=== PATIENT | male | born 1950 | race Caucasian/White ===

== ENCOUNTER 2017-02-16 06:11 | Inpatient (IN) | payer OTHER, MEDICARE ==
[2017-01-24 09:30] VITALS: BMI 32.0
--- NOTE | 2017-01-24 10:09 | PAT Medication Instructions ---
Service Date Jan 24, 2017. Current Home Medication List Ascorbic Acid (Vitamin C), 1,000 MG PO QAM Aspirin (Aspirin Ec), 81 MG PO QAM Atorvastatin (Lipitor), 40 MG PO QAM Coenzyme Q10 (Ubidecarenone) (Co Q10), 200 MG PO QAM Losartan Potassium (Cozaar), 50 MG PO QAM Metoprolol Succinate (Toprol Xl), 25 MG PO QAM Multivitamin (Multivitamin), 1 TAB PO QAM Omeprazole (Prilosec), 20 MG PO QAM Saw [place] (Serenoa Repens) (Saw [place]), 450 MG PO QAM Turmeric (Curcuma Longa) (Turmeric), 1,000 MG PO QAM Medication Instructions For Your Scheduled Surgery - Hold the following medications 2 weeks prior to surgery: Saw [place] ([place]ren[place]) (Saw [place]), 450 MG PO QAM Turmeric (Curcuma Longa) (Turmeric), 1,000 MG PO QAM Coenzyme Q10 (Ubidecarenone) (Co Q10), 200 MG PO QAM - Hold the following medications the morning of surgery: Ascorbic Acid (Vitamin C), 1,000 MG PO QAM Losartan Potassium (Cozaar), 50 MG PO QAM Multivitamin (Multivitamin), 1 TAB PO QAM - Take the following medications the morning of surgery with a sip of water OTHERWISE NOTHING TO EAT OR DRINK AFTER MIDNIGHT: Aspirin (Aspirin Ec), 81 MG PO QAM Atorvastatin (Lipitor), 40 MG PO QAM Metoprolol Succinate (Toprol Xl), 25 MG PO QAM Omeprazole (Prilosec), 20 MG PO QAM If you have any questions please call us at [phone] or [phone] or [phone]
[2017-01-24 10:35] LABS: BASO % 1.6 %; BASO ABS # 0.08 K/uL (0-0.2); COMPLETE YES; IG% 0.2 %; LYMPH % 33.9 %; LYMPH ABS # 1.71 K/uL (1.2-3.4); MEAN CELL VOLUME 98.2 fL (80-100); MEAN CORPUSCULAR HEMOGLOBIN 32.4 pg (25-34); MEAN PLATELET VOLUME 11.2 fL (7.4-10.4); MONO % 11.7 %; NEUT % 49.6 %; PLATELET COUNT 165 K/uL (130-400); RED BLOOD COUNT 4.48 M/uL (4.7-6.1); WHITE BLOOD COUNT 5.05 K/uL (4.8-10.8)
--- NOTE | 2017-01-24 10:46 | DIAGNOSTIC IMAGING REPORT ---
CHEST PREADMISSION(PA/LAT) CLINICAL HISTORY: PAT preoperative evaluation COMPARISON STUDY: 12/22/2015 FINDINGS: Prior median sternotomy. Lungs are clear. Diaphragms are smooth. IMPRESSION: No acute process. Electronically signed by: Ruy Garcia M.D. 01/24/2017 10:45 AM Dictated Date/Time: 01/24/2017 10:44 AM
[2017-01-24 10:53] LABS: URINE APPEARANCE CLEAR (CLEAR); URINE BILIRUBIN NEG (NEG); URINE COLOR YELLOW; URINE NITRITE NEG (NEG); URINE PH 5.5 (4.5-7.5); URINE SPECIFIC GRAVITY 1.026 (1.000-1.030); UROBILINOGEN NEG (NEG); ZZUR CULT IF INDIC CLEAN CATCH NO
[2017-01-24 10:53] LABS: PARTIAL THROMBOPLASTIN RATIO 1.1; PROTHROMBIN TIME (PATIENT) 10.2 SECONDS (9.0-12.0)
[2017-01-24 11:03] LABS: ESTIMATED AVERAGE GLUCOSE 126 mg/dl; HA1C FLAG Normal (Normal)
[2017-01-24 11:10] LABS: MANUAL MICROSCOPIC REQUIRED? NO; REVIEW REQ? NO
[2017-01-24 11:50] LABS: BUN/CREATININE RATIO 16.5 (10-20); CREATININE 1.3 mg/dl (0.60-1.40)
[2017-01-24 11:56] LABS: CALCIUM 9.2 mg/dl (8.5-10.1)
--- NOTE | 2017-02-15 09:28 | History and Physical ---
History & Physical Date Feb 15, 2017. Chief Complaint Left knee pain History of Present Illness The patient is a 66 year old male with complaints of left knee pain. He has known DJD and has failed corticosteroid and viscosupplementation injection. He has pain with ADLs including prolonged weightbearing and standing activities and has difficulty with any kneeling, bending, or squatting activities. Past Medical/Surgical History Medical Problems: (1) Hypercholesteremia (2) Hypertension Surgical Problems: (1) Hx of CABG Additional History Hepatic Disease: No Endocrine Disorder: No Kidney Disease: Yes ( kidney stones) Hypertension: Yes Heart Disease: Yes (CAD x previous CABG, chronic left bundle branch block, ) Bleeding Tendencies: No Infectious Diseases: No Other: Hyperlipidemia, Basal Cell Carcinoma Allergies Coded Allergies: No Known Allergies (Unverified , 01/24/17) Home Medications Scheduled Ascorbic Acid (Vitamin C), 1,000 MG PO QAM Aspirin (Aspirin Ec), 81 MG PO QAM Atorvastatin (Lipitor), 40 MG PO QAM Coenzyme Q10 (Ubidecarenone) (Co Q10), 200 MG PO QAM Losartan Potassium (Cozaar), 50 MG PO QAM Metoprolol Succinate (Toprol Xl), 25 MG PO QAM Multivitamin (Multivitamin), 1 TAB PO QAM Omeprazole (Prilosec), 20 MG PO QAM Saw [place] (Serenoa Repens) (Saw [place]), 450 MG PO QAM Turmeric (Curcuma Longa) (Turmeric), 1,000 MG PO QAM Physical Examination Skin: warm/dry Eyes: normal inspection, EOMI ENT: normal ENT inspection Head: normocephalic Neck: supple, no adenopathy Respiratory/Chest: lungs clear Cardiovascular: regular rate, rhythm Abdomen / GI: normal bowel sounds, non tender Extremities: + pertinent finding (Left knee varus alignment, ROM ~ 0-120 degrees, mild crepitus with ROM) Addiitonal Comments: Xrays: varus aligned knee with bone on bone arthritis medial compartment with medial joint line osteophytes, osteophytes PF joint Diagnosis Left knee DJD Plan of Treatment Left total knee arthroplasty
[2017-02-16] VITALS (9 sets, daily range): BP systolic 103–149; BP diastolic 64–99; PULSE 64–76; TEMP 35.9–36.8; O2SAT 94–96; Ht 182.9 cm; Wt 107.7 kg
[~2017-02-16] VITALS: Ht 182.9 cm; Wt 107.7 kg
[~2017-02-16 06:11] MED LIST: ACETAMINOPHEN 500 MG TAB PO SCH; ASCO10003 PO; ASPI81TA28 PO; ATOR-24 PO; CEFAZOLIN 2000 MG/60 ML D5W 60 ML IV SCH; COEN1CAP28 PO; CeleBREX 200 MG CAP PO SCH; DEXAMETHASONE 4 MG TAB PO SCH; FAMOTIDINE 20 MG TAB PO SCH; GABAPENTIN 300 MG CAP PO SCH; LACTATED RINGER'S 1000ML 1,000 ML IV SCH; LACTATED RINGER'S 1000ML 500 ML IV ONE; LACTATED RINGER'S 1000ML IV SCH; LOSA50TA6 PO; METO25TA3 PO; METOCLOPRAMIDE HCL 10 MG TAB PO SCH; MULT-506 PO; OXYCODONE HCL 10 MG TABCR (OXYCONTIN) PO SCH; PRLSR20 PO; ROPIVACAINE 5MG/ML 30 ML 150 MG, BUPIVACAINE/EPINEPHR 0.5% MPF 30 ML, KETOROLAC TROMETH... INFIL SCH; SAW450CA5 PO; TURM500T PO
[2017-02-16] MEDS ORDERED: LIDOCAINE HCL 2% 2 ML VIAL (20MG/ML) ONE (06:43)
[2017-02-16] MEDS ORDERED: PROPOFOL IV EMULSION 10 MG/ML 20 ML VIAL IV ONE (06:43)
[2017-02-16] MEDS ORDERED: NURSING VERBAL MED ORDER STA (06:43)
[2017-02-16] MEDS ORDERED: MIDAZOLAM HCL 1 MG/ML 2ML VIAL ONE (06:44)
[2017-02-16] MEDS ORDERED: FENTANYL CITRATE INJ 50 MCG/1 ML 2 ML VIAL ONE (06:44)
--- NOTE | 2017-02-16 06:45 | History & Physical Bridge Note ---
H&P Re-Evaluation Bridge Note: I have examined the patient, reviewed the History & Physical and in the interval since the performance of the History & Physical I have noted the following changes of clinical significance: No changes noted
[2017-02-16] MEDS ORDERED: ORTHO JOINT ANESTHETIC ONE (06:54)
[2017-02-16] MEDS ORDERED: BACITRACIN 50000 UNIT VIAL ONE (06:54)
[2017-02-16] MEDS ORDERED: POVIDONE-IODINE OP SOLN 30 ML BTL ONE (06:54)
[2017-02-16] MEDS ORDERED: ONDANSETRON INJ 2 MG/ML 2 ML VIAL IV PRN ×2 (07:00→09:15)
[2017-02-16] MEDS ORDERED: ATROPINE SULFATE 0.1 MG/ML 5ML SYR IV PRN (07:00)
[2017-02-16] MEDS ORDERED: EpHEDrine SULFATE INJ 50 MG/ML AMP IV PRN (07:00)
[2017-02-16] MEDS ORDERED: FENTANYL CITRATE INJ 50 MCG/1 ML 2 ML VIAL IV PRN (07:00)
[2017-02-16] MEDS ORDERED: BUPIVACAINE 0.5 % 5 MG/1 ML PF 10ML VIAL ONE (07:00)
[2017-02-16] MEDS: TRANEXAMIC ACID INJ 1,000 MG in SODIUM CHLORIDE 0.9% 100ML 100 ML IV SCH ×2 (07:22→11:11)
[2017-02-16] MEDS ORDERED: EpHEDrine SULFATE INJ 50 MG/ML AMP ONE (08:35)
--- NOTE | 2017-02-16 09:05 | [facility] Operative Report ---
Operative Report Operative Date Feb 16, 2017. Pre-Operative Diagnosis Left knee degenerative joint disease Post-Operative Diagnosis Left knee degenerative joint disease Procedure(s) Performed Left Total Knee Arthroplasty patient's left knee was prepped and draped in usual sterile manner the limb was exsanguinated with an Esmarch bandage and the tourniquet was inflated to 3 and 50 mmHg. Longitudinal incision made subcutaneous tissues reminiscent of that cardio and aqua mantis was used for hemostasis. Medium parapatellar incision made. Patella was everted and the was flexed. Or effusions noted. Severe estrus wrist. Fat pads removed and anteromedial face of the tibia was cleared of soft tissue and retracted. Next medullary guide was used to produce the proximal cut and this bone fragment was removed. Ninoska is used to enter the femoral canal and the possible alignment guide was placed. Distal femoral cut was made size 6 femoral component shows incised using this chamfers were cut. The notch was cut and split fragment was preserved and menisci removed using meniscal clamp and knife. The distal femoral component was impacted in position and it fit perfectly and the tibia was subluxed anteriorly where a size 5 tibial component was which was sized. Trial reduction was carried out size 13 Deanna was chosen. The patella. With tolerating 39 mm patella was chosen small bipartite section of patella was shelled out. Drill holes for the patellar made trial reductions carried out and the patella tracked adequately. All trials were removed joint and superior articulating was injected irrigation was carried out throughout the joint and cement was mixed and the final components were cemented in position after thoroughly drying the bone. Excess cement was removed to help the knee was held in full extension while cement hardened patella clamp was placed over the patella and assistance. Following this Hemovac drain was placed Betadine soaked was carried out and the wound was closed in layers extensor mechanism was closed using a combination of #2 FiberWire and #1 Vicryl subcutaneous tissue was closed with Dexon and skin was closed using a simple strip. The patient was taken to recovery in stable and good condition he tolerated the procedure well Ian Goodrich was internal medicine physician assistant he was necessary throughout portions of the procedure including positioning prepping and draping surgical cyst wound closure and dressing application. Surgeon Jack Chief Station Engineer Surgeon(s) Ian Goodrich PA-C Estimated Blood Loss 10CC Findings OA Specimens A: Left knee bone and tissue I attest to the content of the Intraoperative Record and any orders documented therein. Any exceptions are noted below.
[2017-02-16] MEDS ORDERED: BISACODYL 10 MG SUPP PR PRN (09:15)
[2017-02-16] MEDS ORDERED: TAMSULOSIN HCL 0.4 MG CAP PO PRN (09:15)
[2017-02-16] MEDS ORDERED: METOCLOPRAMIDE HCL INJ 5 MG/ML 2 ML VIAL IV PRN (09:15)
[2017-02-16] MEDS ORDERED: MoRPHine SULFATE 2 MG/ML CARP IV PRN ×2 (09:15→11:15)
[2017-02-16] MEDS ORDERED: SOD PHOSPHATE/SOD BIPHOSPHATE ENEMA 132 ML BTL PR PRN (09:15)
[2017-02-16] MEDS ORDERED: MAGNESIUM HYDROXIDE SUSP 30 ML UDC PO PRN (09:15)
--- NOTE | 2017-02-16 10:12 | DIAGNOSTIC IMAGING REPORT ---
LEFT KNEE 1 OR 2 VIEWS ROUTINE CLINICAL HISTORY: Osteoarthritis. Postop study COMPARISON: None. DISCUSSION: There are postsurgical changes of a total left knee arthroplasty and patellar resurfacing. The femoral and tibial components appear well seated. There are overlying surgical drains. There is air within the soft tissues consistent with recent surgery IMPRESSION: Postsurgical changes of a total left knee arthroplasty. Electronically signed by: Fam Morgan M.D. 02/16/2017 10:10 AM Dictated Date/Time: 02/16/2017 10:10 AM
[2017-02-16] MEDS ORDERED: MoRPHine SULFATE 4 MG/ML 1 ML CARP IV PRN (11:15)
[2017-02-16] MEDS ORDERED: MoRPHine SULFATE 10 MG/ML CARP/VIAL IV PRN (11:15)
--- NOTE | 2017-02-16 11:23 | Medical Consult ---
Consultation Date of Consultation: Feb 16, 2017. Attending Physician: Jovani Santiago M.D. Reason for Consultation: Post-op History of Present Illness 66 y/o M HTN, HPL, CAD, LBBB. Pt is post-op L TKA. We are asked to evaluate post-op due to his underlying medical issues. Past Medical/Surgical History 1) HTN 2) HPL 3) CAD - history of CABG 4) Basal cell CA 5) DJD Family History Patient reports no known family medical history. Social History Smoking Status: Former Smoker Drug Use: none Marital Status: Housing Status: lives with significant other Allergies Coded Allergies: No Known Allergies (Unverified , 02/16/17) Current Inpatient Medications Current Inpatient Medications Medications (Trade) Dose Ordered Sig/Chaz Route Start Time Stop Time Status Last Admin Dose Admin Lactated Ringer's 1,000 ml @ 60 mls/hr [id number] IV 02/16/17 06:00 02/16/17 22:39 02/16/17 07:21 60 MLS/HR Cefazolin Sodium 60 ml @ 100 mls/hr PREOP IV 02/16/17 06:00 02/16/17 18:00 02/16/17 07:56 100 MLS/HR Acetaminophen (Tylenol Tab) 1,000 mg PREOP PO 02/16/17 06:00 02/16/17 18:00 02/16/17 07:29 1,000 MG Celecoxib (CeleBREX CAP) 200 mg PREOP PO 02/16/17 06:00 02/16/17 18:00 02/16/17 07:29 200 MG Dexamethasone (Decadron Tab) 8 mg PREOP PO 02/16/17 06:00 02/16/17 18:00 02/16/17 07:28 8 MG Famotidine (Pepcid Tab) 20 mg PREOP PO 02/16/17 06:00 02/16/17 18:00 02/16/17 07:29 20 MG Gabapentin (Neurontin Cap) 300 mg PREOP PO 02/16/17 06:00 02/16/17 18:00 02/16/17 07:28 300 MG Metoclopramide HCl (Reglan Tab) 10 mg PREOP PO 02/16/17 06:00 02/16/17 18:00 02/16/17 07:28 10 MG Oxycodone HCl (Oxycontin Tab) 10 mg PREOP PO 02/16/17 06:00 02/16/17 18:00 02/16/17 07:29 10 MG Lactated Ringer's 1,000 ml @ 15 mls/hr Q24H IV 02/16/17 06:00 02/17/17 05:59 Fentanyl Citrate (Fentanyl Inj) 50 mcg Q5M PRN IV 02/16/17 07:00 02/16/17 12:00 Ondansetron HCl (Zofran Inj) 4 mg ONE PRN IV 02/16/17 07:00 02/16/17 12:00 Ephedrine Sulfate (EpHEDrine SULFATE INJ) 5 mg Q5M PRN IV 02/16/17 07:00 02/16/17 12:00 Atropine Sulfate (Atropine Sulfate 0.1MG/Ml Inj) 0.5 mg Q1M PRN IV 02/16/17 07:00 02/16/17 12:00 Potassium Chloride/Dextrose/ Sod Cl 1,000 ml @ 100 mls/hr Q10H IV 02/16/17 11:03 02/17/17 11:02 Cefazolin Sodium 2000 mg/Dextrose 60 ml @ 100 mls/hr Q8H IV 02/16/17 16:00 02/17/17 00:35 Celecoxib (CeleBREX CAP) 200 mg BID PO 02/16/17 21:00 03/18/17 20:59 UNV Oxycodone HCl (Roxicodone Immediate Rel Tab) 1 TABLET FOR PAIN RATING... Q4H PRN PO 02/16/17 09:15 03/02/17 09:14 Oxycodone HCl (Oxycontin Tab) 10 mg Q12 PO 02/16/17 21:00 03/02/17 20:59 Morphine Sulfate (MoRPHine SULFATE INJ) 2-6mg Q3HWA PRN IV 02/16/17 09:15 03/02/17 09:14 UNV Magnesium Hydroxide (Milk Of Magnesia Susp) 30 ml Q6H PRN PO 02/16/17 09:15 03/18/17 09:14 Bisacodyl (Dulcolax Supp) 10 mg DAILY PRN [place] 02/16/17 09:15 03/18/17 09:14 Sodium Biphosphate/ Sodium Phosphate (Fleet Enema) 132 ml DAILY PRN [place] 02/16/17 09:15 03/18/17 09:14 Senna (Senokot Tab) 17.2 mg HS PO 02/16/17 21:00 03/18/17 20:59 Docusate Sodium (coLACE CAP) 100 mg BID PO 02/16/17 21:00 03/18/17 20:59 Ondansetron HCl (Zofran Inj) 4 mg Q6H PRN IV 02/16/17 09:15 03/18/17 09:14 Metoclopramide HCl (Reglan Inj) 10 mg Q6H PRN IV 02/16/17 09:15 03/18/17 09:14 Ferrous Gluconate (Ferrous Gluconate Tab) 324 mg TIDM PO 02/16/17 12:30 03/18/17 12:29 Pantoprazole Sodium (Protonix Tab) 40 mg QAM PO 02/17/17 09:00 03/19/17 08:59 UNV Aspirin (Ecotrin Tab) 325 mg BID PO 02/16/17 21:00 03/18/17 20:59 UNV Tamsulosin HCl (Flomax Cap) 0.4 mg QAM PRN PO 02/16/17 09:15 03/18/17 09:14 UNV Tranexamic Acid 1000 mg/Sodium Chloride 110 ml @ 660 mls/hr TODAY@1600 IV 02/16/17 16:00 02/16/17 16:09 Dexamethasone Sodium Phosphate 10 mg/Syringe 2.5 ml @ 1 mls/min TODAY@0730 IV 02/17/17 07:30 02/17/17 07:33 Ketorolac Tromethamine (Toradol Inj) 15 mg Q6H PRN IV. 02/16/17 14:00 02/17/17 13:59 Review of Systems Constitutional: No fever, No chills, No sweats Eyes: No worsening of vision, No eye pain ENT: No hearing loss, No unusual epistaxis, No nasal symptoms Respiratory: No cough, No sputum, No wheezing Cardiovascular: No chest pain, No orthopnea, No PND Abdomen: No pain, No nausea, No vomiting Musculoskeletal: + joint pain (Leading to surgery) Genitourinary - Male: No hematuria, No dysuria, No urinary frequency, No urinary urgency Neurologic: No memory loss, No paralysis, No weakness Psychiatric: No depression symptoms Endocrine: No fatigue Hematologic / Lymphatic: No abnormal bleeding/bruising Integumentary: No rash Allergic / Immunologic: No environmental allergies Physical Exam Date Time Temp Pulse Resp B/P (MAP) Pulse Ox O2 Delivery O2 Flow Rate FiO2 02/16/17 10:52 94 Nasal Cannula 2.0 02/16/17 10:50 94 Nasal Cannula 2.0 02/16/17 10:47 36.5 74 14 118/71 (87) 94 Nasal Cannula 2.0 02/16/17 10:40 71 14 106/67 94 Nasal Cannula 2 02/16/17 10:30 36.6 71 14 102/67 96 Nasal Cannula 2 02/16/17 10:20 74 24 99/65 94 Nasal Cannula 2 02/16/17 10:10 71 19 98/67 96 Nasal Cannula 2 02/16/17 10:00 72 18 99/60 93 Nasal Cannula 2 02/16/17 09:50 73 21 93/62 95 Nasal Cannula 2 02/16/17 09:42 36.4 77 23 100/62 94 Nasal Cannula 2 02/16/17 06:45 36.7 76 18 149/99 95 Room Air Overweight middle-aged male in no distress General Appearance: WD/WN, no apparent distress Head: normocephalic Eyes: normal inspection, PERRL, EOMI ENT: normal ENT inspection, pharynx normal Neck: supple, no JVD Respiratory/Chest: chest non-tender, lungs clear, normal breath sounds Cardiovascular: regular rate, rhythm, no edema, no gallop, no JVD, no murmur, normal peripheral pulses Abdomen/GI: normal bowel sounds, non tender, soft Back: normal inspection, no CVA tenderness, no muscle spasm, normal range of motion Extremities/Musculoskelatal: normal inspection, no calf tenderness, normal capillary refill, no pedal edema, normal range of motion Neurologic/Psych: dust box tender II-XII nml as tested, no motor/sensory deficits, alert, normal mood/affect, normal reflexes, oriented x 3 Skin: normal color, warm/dry, no rash Laboratory Results Last 24 Hours Test 02/16/17 10:54 Assessment & Plan 66 y/o M HTN, HPL, CAD, LBBB. Pt is post-op L TKA. We are asked to evaluate post-op due to his underlying medical issues. 1) HTN - restart Cozaar , Toprol 2) HPL - restart Lipitor 3) Post-op - pain adequately controlled - tolerating PO - DVT prophylaxis to start one day following - PT/OT per ortho Med service will sign off - dental professional for any issues/complications Total time for this consult including review of surgery notes, meds, labs, records - discussion wth pt - 28 min
[2017-02-16] MEDS: D5W AND 1/2NSS + 20MEQ KCL 1,000 ML IV SCH ×2 (11:44→20:38)
--- NOTE | 2017-02-16 11:53 | Anesthesiology Progress Note ---
Anesthesia Post Op Note Date & Time Feb 16, 2017 at 11:53 Vital Signs Pain Intensity: 0.0 Vital Signs Past 12 Hours Date Time Temp Pulse Resp B/P (MAP) Pulse Ox O2 Delivery O2 Flow Rate FiO2 02/16/17 11:19 36.5 70 17 108/69 (82) 96 Nasal Cannula 2.0 02/16/17 10:52 94 Nasal Cannula 2.0 02/16/17 10:50 94 Nasal Cannula 2.0 02/16/17 10:47 36.5 74 14 118/71 (87) 94 Nasal Cannula 2.0 02/16/17 10:40 71 14 106/67 94 Nasal Cannula 2 02/16/17 10:30 36.6 71 14 102/67 96 Nasal Cannula 2 02/16/17 10:20 74 24 99/65 94 Nasal Cannula 2 02/16/17 10:10 71 19 98/67 96 Nasal Cannula 2 02/16/17 10:00 72 18 99/60 93 Nasal Cannula 2 02/16/17 09:50 73 21 93/62 95 Nasal Cannula 2 02/16/17 09:42 36.4 77 23 100/62 94 Nasal Cannula 2 02/16/17 06:45 36.7 76 18 149/99 95 Room Air Notes Mental Status: alert / awake / arousable, participated in evaluation Pt Amnestic to Procedure: Yes Nausea / Vomiting: adequately controlled Pain: adequately controlled Airway Patency, RR, SpO2: stable & adequate BP & HR: stable & adequate Hydration State: stable & adequate Neuraxial Anesthesia: was administered, sensory block is resolving Anesthetic Complications: no major complications apparent
[2017-02-16] MEDS: FERROUS GLUCONATE 324 MG TAB PO SCH ×2 (12:30→17:44)
[2017-02-16] MEDS ORDERED: KETOROLAC TROMETHAMINE 15 MG/ML VIAL IV. PRN (14:00)
[2017-02-16] MEDS: CEFAZOLIN IV 2,000 MG in DEXTROSE 5% 50ML 50 ML IV SCH ×2 (15:43→23:28)
[2017-02-16] MEDS ORDERED: TRANEXAMIC ACID INJ 1,000 MG in SODIUM CHLORIDE 0.9% 100ML 100 ML IV SCH (16:00)
[2017-02-16] MEDS: OXYCODONE HCL IR 5 MG TAB (IMMEDIATE RELEASE) PO PRN (16:40)
[2017-02-16] MEDS: ASPIRIN 325 MG ECTAB PO SCH (20:37)
[2017-02-16] MEDS: DOCUSATE SODIUM 100 MG CAP PO SCH (20:37)
[2017-02-16] MEDS: OXYCODONE HCL 10 MG TABCR (OXYCONTIN) PO SCH (20:38)
[2017-02-16] MEDS: SENNA 8.6 MG TAB PO SCH (20:38)
[2017-02-17 03:00] VITALS: BP 124/73; PULSE 82; TEMP 36.6; O2SAT 94
[2017-02-17 06:07] LABS: HEMATOCRIT 37.4 % (42-52); MEAN CELL VOLUME 93.3 fL (80-100); MEAN CORPUSCULAR HEMOGLOBIN 31.9 pg (25-34); MEAN CORPUSCULAR HGB CONC 34.2 g/dl (32-36); PLATELET COUNT 153 K/uL (130-400); RED BLOOD COUNT 4.01 M/uL (4.7-6.1); WHITE BLOOD COUNT 16.01 K/uL (4.8-10.8)
[2017-02-17] MEDS: D5W AND 1/2NSS + 20MEQ KCL 1,000 ML IV SCH (06:42)
[2017-02-17] MEDS ORDERED: DEXAMETHASONE INJ 10 MG in SYRINGE 0 ML IV SCH (07:30)
--- NOTE | 2017-02-17 07:43 | Orthopedic Progress Note ---
Orthopedic Progress Note Date of Service Feb 17, 2017. Subjective Post OP Day: 1 Reports: feeling well Objective N/V intact, dressing C/D/I (Hemovac in place), toes mobile Date Time Temp Pulse Resp B/P (MAP) Pulse Ox O2 Delivery O2 Flow Rate FiO2 02/17/17 07:14 Room Air 02/17/17 03:00 36.6 82 16 124/73 (90) 94 Room Air 02/16/17 23:07 36.8 74 18 144/68 (93) 95 Room Air 02/16/17 20:00 Room Air 02/16/17 15:22 35.9 70 18 132/64 (86) 94 Room Air 02/16/17 15:15 Room Air 02/16/17 13:43 36.5 64 16 135/74 (94) 95 Room Air 02/16/17 12:57 36.4 68 16 128/66 (86) 94 Room Air 02/16/17 11:50 36.4 65 16 103/65 (78) 95 Nasal Cannula 2.0 02/16/17 11:19 36.5 70 17 108/69 (82) 96 Nasal Cannula 2.0 02/16/17 10:52 94 Nasal Cannula 2.0 02/16/17 10:50 94 Nasal Cannula 2.0 02/16/17 10:47 36.5 74 14 118/71 (87) 94 Nasal Cannula 2.0 02/16/17 10:40 71 14 106/67 94 Nasal Cannula 2 02/16/17 10:30 36.6 71 14 102/67 96 Nasal Cannula 2 02/16/17 10:20 74 24 99/65 94 Nasal Cannula 2 02/16/17 10:10 71 19 98/67 96 Nasal Cannula 2 02/16/17 10:00 72 18 99/60 93 Nasal Cannula 2 02/16/17 09:50 73 21 93/62 95 Nasal Cannula 2 02/16/17 09:42 36.4 77 23 100/62 94 Nasal Cannula 2 Laboratory Results 24 Hours: Test 02/17/17 05:51 Hematocrit 37.4 % Hemoglobin 12.8 g/dL Assessment & Plan Assessment: 66 yo male stable POD #1 s/p left TKA Plan: 1. Med management 2. DVT prophylaxis- ASA, SCDs 3. PT/OT 4. D/C planning- home w/ HH
--- NOTE | 2017-02-17 07:45 | Discharge Instructions ---
Discharge Instructions Date of Service Feb 17, 2017. Admission Reason for Admission: Osteoarthritis, Left Knee Discharge Discharge Diagnosis / Problem: Left knee arthritis Discharge Goals Goal(s): Decrease discomfort, Improve function Activity Recommendations Activity Limitations: as noted below Weightbearing Status: Left weightbearing (as tolerated) . Instructions / Follow-Up Instructions / Follow-Up ACTIVITY RECOMMENDATIONS: SELF CARE INSTRUCTIONS AFTER TOTAL KNEE REPLACEMENT A. You may need to continue a physical therapy program after discharge from the hospital. There are several options available to you. Your doctor will assist you in selecting the best one for you. 1. An out-patient facility 2 to 3 times a week for therapy or home therapy. 2. Continue working on all exercises taught to you in the hospital. Your goals should be to increase bending of your knee to 90 degrees and beyond and to fully straighten your knee. B. You may progress at your own pace from walking with a walker or crutches to a cane; then to no assistive devices. C. Make walking a part of your daily routine. Be up as much as comfortable with rest periods throughout the day. Rest with leg elevation is very important. Use the ice wrap frequently for the first 3-4 weeks. D. There are no restrictions on activities. You may ride in a car, shop, participate in transport corps officer and all social activities. E. Wear the long elastic stockings (HARINDER hose) 20 hours a day for 2 weeks after surgery. They can be removed several times a day for laundering and for a bath. F. You may shower, no tub baths until cleared by your doctor. SPECIAL CARE INSTRUCTIONS: VERY IMPORTANT TO READ AND REVIEW A. There are a few signs you need to watch for after you are home. Call [facility] if you notice any of the followin. Increased severe knee pain. Some pain is expected especially when you exercise. 2. Increased swelling in your leg or knee; pain or swelling of the calf muscle in either lower leg. 3. Any fluid drainage from the incision. 4. Shortness of breath or chest pain. B. Please call [facility] at if you have any concerns or questions about your operation or recovery. The doctor or his nurse will return your call promptly. C. You must take antibiotics before dental work, bladder, bowel or other surgery. Your doctor will provide you with a permanent care to carry describing this precaution. IMPORTANT: * REMEMBER TO TAKE ASPIRIN, 81 MG, TWICE DAILY FOR 4 WEEKS UNLESS OTHERWISE DIRECTED. THIS IS YOUR BLOOD THINNER. * HIGH RISK PATIENTS MAY BE PRESCRIBED A STRONGER BLOOD THINNER. THIS WILL BE PROVIDED AT DISCHARGE. * CALL IF INCREASED PAIN, REDNESS, DRAINAGE OR FEVER GREATER THAT 101. * WEAR HARINDER HOSE 20 HOURS PER DAY FOR 2 WEEKS. Silverlon- This is a large adhesive bandage that contains silver ions. This helps your incision heal by fighting off bacteria and protecting it from the outside environment. You are permitted to shower with this dressing. This will remain on your incision for 7 days and then should be removed. Some visible blood or drainage through the dressing window is normal. If there is significant drainage or leaking noted before the 7 days notify your doctor's office immediately. Once removed, keep incision clean and dry. If there is any drainage or redness noted, please call your surgeon. FOLLOW UP VISIT: If appointment is not already scheduled: Please call [facility] to make a follow-up appointment for 2 weeks after your surgery at . Current Hospital Diet Patient's current hospital diet: Regular Diet Discharge Diet Recommended Diet: Regular Diet Procedures Procedures Performed: Left Total Knee Arthroplasty patient's left knee was prepped and draped in usual sterile manner the limb was exsanguinated with an Esmarch bandage and the tourniquet was inflated to 3 and 50 mmHg. Longitudinal incision made subcutaneous tissues reminiscent of that cardio and aqua mantis was used for hemostasis. Medium parapatellar incision made. Patella was everted and the was flexed. Or effusions noted. Severe estrus wrist. Fat pads removed and anteromedial face of the tibia was cleared of soft tissue and retracted. Next medullary guide was used to produce the proximal cut and this bone fragment was removed. Ninoska is used to enter the femoral canal and the possible alignment guide was placed. Distal femoral cut was made size 6 femoral component shows incised using this chamfers were cut. The notch was cut and split fragment was preserved and menisci removed using meniscal clamp and knife. The distal femoral component was impacted in position and it fit perfectly and the tibia was subluxed anteriorly where a size 5 tibial component was which was sized. Trial reduction was carried out size 13 Deanna was chosen. The patella. With tolerating 39 mm patella was chosen small bipartite section of patella was shelled out. Drill holes for the patellar made trial reductions carried out and the patella tracked adequately. All trials were removed joint and superior articulating was injected irrigation was carried out throughout the joint and cement was mixed and the final components were cemented in position after thoroughly drying the bone. Excess cement was removed to help the knee was held in full extension while cement hardened patella clamp was placed over the patella and assistance. Following this Hemovac drain was placed Betadine soaked was carried out and the wound was closed in layers extensor mechanism was closed using a combination of #2 FiberWire and #1 Vicryl subcutaneous tissue was closed with Dexon and skin was closed using a simple strip. The patient was taken to recovery in stable and good condition he tolerated the procedure well Ian Goodrich was logging assistant he was necessary throughout portions of the procedure including positioning prepping and draping surgical cyst wound closure and dressing application. Pending Studies Studies pending at discharge: no Laboratory Results Hemoglobin A1c Test 01/24/17 10:13 Range/Units Estimated Average Glucose 126 mg/dl Hemoglobin A1c 6.0 H 4.5-5.6 % Medical Emergencies . Who to Call and When: Medical Emergencies: If at any time you feel your situation is an emergency, please call 911 immediately. . Non-Emergent Contact Non-Emergency issues call your: Surgeon Call Non-Emergent contact if: temperature is above 101.5, your pain is not controlled, wound has increased drainage, wound has increased redness . "Provider Documentation" section prepared by Ian Goodrich PA-C. . VTE Core Measure Inpt VTE Proph given/why not?: Other Anticoagulation (ASA 81mg bid), T.E.D. Stockings, SCD's [place] Drug Monitoring Program Search Results: patient reviewed within database, no issues identified
--- NOTE | 2017-02-17 07:45 | Anesthesiology Progress Note ---
Anesthesia Post Op Note Date & Time Feb 17, 2017 at 07:44 Vital Signs Pain Intensity: 0.0 Vital Signs Past 12 Hours Date Time Temp Pulse Resp B/P (MAP) Pulse Ox O2 Delivery O2 Flow Rate FiO2 02/17/17 07:14 Room Air 02/17/17 03:00 36.6 82 16 124/73 (90) 94 Room Air 02/16/17 23:07 36.8 74 18 144/68 (93) 95 Room Air 02/16/17 20:00 Room Air Notes Mental Status: alert / awake / arousable, participated in evaluation Pt Amnestic to Procedure: Yes Nausea / Vomiting: adequately controlled Pain: adequately controlled Airway Patency, RR, SpO2: stable & adequate BP & HR: stable & adequate Hydration State: stable & adequate Neuraxial Anesthesia: was administered, sensory block resolved Anesthetic Complications: no major complications apparent
[2017-02-17 07:58] VITALS: BP 134/72; PULSE 74; TEMP 36.6; O2SAT 97
[2017-02-17] MEDS: DOCUSATE SODIUM 100 MG CAP PO SCH ×2 (08:31→20:45)
[2017-02-17] MEDS: ASPIRIN 325 MG ECTAB PO SCH ×2 (08:32→20:45)
[2017-02-17] MEDS: LOSARTAN POTASSIUM 50 MG TAB PO SCH (08:32)
[2017-02-17] MEDS: METOPROLOL SUCC 25MG EXT REL TAB PO SCH (08:32)
[2017-02-17] MEDS: ASCORBIC ACID 500 MG TAB PO SCH (08:32)
[2017-02-17] MEDS: FERROUS GLUCONATE 324 MG TAB PO SCH ×3 (08:32→18:14)
[2017-02-17] MEDS: ATORVASTATIN 20 MG TAB PO SCH (08:33)
[2017-02-17] MEDS: OXYCODONE HCL 10 MG TABCR (OXYCONTIN) PO SCH ×2 (08:33→08:49)
[2017-02-17] MEDS: PANTOprazole SOD 40 MG TAB PO SCH (08:33)
[2017-02-17 09:06] VITALS: O2SAT 97
[2017-02-17 11:25] VITALS: BP 152/84; PULSE 64; TEMP 36.7; O2SAT 94
[2017-02-17 15:30] VITALS: BP 116/69; PULSE 75; TEMP 37; O2SAT 96
[2017-02-17] MEDS: CeleBREX 200 MG CAP PO SCH (20:45)
[2017-02-17] MEDS: SENNA 8.6 MG TAB PO SCH (20:45)
[2017-02-17] MEDS: OXYCODONE HCL IR 5 MG TAB (IMMEDIATE RELEASE) PO PRN (20:46)
[2017-02-17 22:52] VITALS: BP 109/60; PULSE 73; TEMP 36.8; O2SAT 93
[2017-02-18 06:54] VITALS: BP 118/76; PULSE 86; TEMP 36.9; O2SAT 97
[2017-02-18] MEDS: FERROUS GLUCONATE 324 MG TAB PO SCH (07:28)
[2017-02-18] MEDS: PANTOprazole SOD 40 MG TAB PO SCH (07:28)
[2017-02-18] MEDS: DOCUSATE SODIUM 100 MG CAP PO SCH (07:28)
[2017-02-18] MEDS: CeleBREX 200 MG CAP PO SCH (07:29)
[2017-02-18] MEDS: ATORVASTATIN 20 MG TAB PO SCH (07:30)
[2017-02-18 07:32] VITALS: BP 142/76; PULSE 84
[2017-02-18] MEDS: METOPROLOL SUCC 25MG EXT REL TAB PO SCH (07:33)
[2017-02-18] MEDS: LOSARTAN POTASSIUM 50 MG TAB PO SCH (07:34)
[2017-02-18] MEDS: ASCORBIC ACID 500 MG TAB PO SCH (07:34)
[2017-02-18] MEDS: ASPIRIN 325 MG ECTAB PO SCH (07:34)
[2017-02-18] MEDS: OXYCODONE HCL 10 MG TABCR (OXYCONTIN) PO SCH (07:37)
[2017-02-18] MEDS: OXYCODONE HCL IR 5 MG TAB (IMMEDIATE RELEASE) PO PRN (07:40)
--- NOTE | 2017-02-18 08:57 | Orthopedic Progress Note ---
Orthopedic Progress Note Date of Service Feb 18, 2017. Subjective Post OP Day: 2 Reports: feeling well, Denies: chest pain, SOB, nausea / vomiting, light headedness, calf pain Objective calves soft nontender, N/V intact, hip located, dressing C/D/I, A&O x3, toes mobile Date Time Temp Pulse Resp B/P (MAP) Pulse Ox O2 Delivery O2 Flow Rate FiO2 02/18/17 07:32 84 142/76 (98) 02/18/17 06:54 36.9 86 20 118/76 (90) 97 Room Air 02/18/17 00:00 Room Air 02/17/17 22:52 36.8 73 20 109/60 (76) 93 Room Air 02/17/17 16:15 Room Air 02/17/17 15:30 37.0 75 18 116/69 (85) 96 Room Air 02/17/17 11:25 36.7 64 16 152/84 (106) 94 Room Air 02/17/17 09:06 97 Room Air Assessment & Plan Assessment: 66 yo male stable POD #2 s/p left TKA Plan: 1. Med management 2. DVT prophylaxis- ASA, SCDs 3. PT/OT 4. D/C planning- home w/ HH Patient seen and examined, agree with above. Inhouse Planning Pain Management: Celebrex, Oxycontin, PO Tylenol, Oxy IR DVT Prophylaxis: TEDs, SCDs, ASA Discharge Planning Discharge Planning: home with home health ([facility])
[2017-02-18] MEDS ORDERED: ONDA8TAB6 PO (09:00)
[2017-02-18] MEDS ORDERED: CLB200 PO (09:00)
[2017-02-18] MEDS ORDERED: RXC5 PO (09:00)
[2017-02-18] MEDS ORDERED: OXYSR10 PO (09:00)
[2017-02-18] MEDS ORDERED: SNK PO (09:00)
[2017-02-18] MEDS ORDERED: ASPEC325 PO (09:00)
[2017-02-18 10:17] VITALS: BP 142/76; PULSE 84; TEMP 36.9; O2SAT 97
== END 2017-02-18 12:04 | disposition home health service (06) | DRG 470 ==
LOC: C.ACU 06:11 → C.3E 06:30 → ENRESERV 10:12
PROC: 0SRD0J9 Replacement of Left Knee Joint with Synthetic Substitute, Cemented, Open Approach (ICD-10-PCS; principal; 2017-02-16 08:00)
DX: M17.12 Unilateral primary osteoarthritis, left knee (principal); I10 Essential (primary) hypertension; E78.00 Pure hypercholesterolemia, unspecified; Z98.61 Coronary angioplasty status

== ENCOUNTER 2020-06-29 07:18 | Inpatient (IN) ==
--- NOTE | 2020-06-02 12:58 | PAT Medication Instructions ---
Medication Instructions Date of Service June 02, 2020 Home Medications aspirin 81 mg PO QAM coQ10 (ubiquinol) 200 mg PO QAM losartan 50 mg PO QAM lutein 20 mg PO QAM multivitamin 1 tab PO QAM omeprazole 20 mg PO QAM rosuvastatin 20 mg PO QAM saw palmetto 500 mg PO QAM vitamin B complex 1 tab PO QAM metoprolol succinate 100 mg PO QAM STOP taking 2 weeks before surgery coQ10 (ubiquinol) 200 mg PO QAM lutein 20 mg PO QAM saw palmetto 500 mg PO QAM DO NOT take the morning of surgery losartan 50 mg PO QAM multivitamin 1 tab PO QAM vitamin B complex 1 tab PO QAM Take morning of surgery With a small sip of water, OTHERWISE NOTHING TO EAT OR DRINK AFTER MIDNIGHT: aspirin 81 mg PO QAM omeprazole 20 mg PO QAM rosuvastatin 20 mg PO QAM metoprolol succinate 100 mg PO QAM Other Notes If you have any questions please call us at [phone] or [phone] or [phone] or [phone]
--- NOTE | 2020-06-04 10:35 | Anesthesiology Consultation ---
Date of Service June 04, 2020 Assessment & Plan (1) Encounter for pre-operative examination: Chart Review Chart Review: Pending: Refer to Additional Notes / Consult section (pending surgeon ordered cardio clearance and preop Covid testing ) and Patient seen in Pre Admission Testing Awaiting surgeon ordered cardio clearance scheduled 06/08/20 Per PAT appt on 06/04/20, patient denies any recent travel. No known Covid p ositive contacts or Covid related symptoms. Pt's Covid tested 2-3 weeks ago- was Covid negative (pt was not having symptoms- was required by cardiology). Educated patient to follow up with surgeon's office regarding Covid testing. Educated on importance of self quarantining, social distancing and wearing mask in public both for the patient and household contacts. Teaching & Discussion Pre-Anesthesia Teaching/Discussion Notes: Instructed NPO after midnight before surgery,except medications with 15 cc of water. Medication instructions provided according to the PAT guidelines. History Surgery Operation Date: 06/29/20 07:45 Proposed Procedures p L2-L4 Decompression/Fusion, L4-S1 Hardware Removal, Spinal Cord Monitoring - Dwayne Washington DO Height/Weight Height: 6 ft Weight: 108.1 kg Allergies Allergy/AdvReac Type Severity Reaction Status Date / Time NSAIDS (Non-Steroidal Allergy Mild ITCHING Verified 11/06/19 11:12 Anti-Inflamma PALMS Medications Home Medications Medication Instructions Recorded Confirmed Last Taken aspirin 81 mg PO QAM 11/06/19 06/01/20 Unknown coQ10 (ubiquinol) 200 mg PO QAM 11/06/19 06/01/20 Unknown losartan 50 mg PO QAM 11/06/19 06/01/20 Unknown lutein 20 mg PO QAM 11/06/19 06/01/20 Unknown multivitamin 1 tab PO QAM 11/06/19 06/01/20 Unknown omeprazole 20 mg PO QAM 11/06/19 06/01/20 Unknown rosuvastatin 20 mg PO QAM 11/06/19 06/01/20 Unknown saw palmetto 500 mg PO QAM 11/06/19 06/01/20 Unknown vitamin B complex 1 tab PO QAM 11/06/19 06/01/20 Unknown metoprolol succinate 100 mg PO QAM 06/01/20 06/01/20 Unknown Past Medical History Medical History CAD (coronary artery disease), [place] coronary artery S/p 1 vessel CABG, [place] 1995. Multiple cardiac caths, no stents. Cardiomyopathy EF mildly reduced at 40-44% GERD (gastroesophageal reflux disease) Well controlled and stable Hyperlipidemia Hypertension LBBB (left bundle branch block) Chronic per cardio Myocardial Infarction 1995? 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 Exercise / Class Metabolic Activity II 4-5 Yardwork/Stairs/Walk up hill (ONE FLIGHT OF STAIRS - NO CHEST PAIN OR SOB ) Past Family History Family History Grandfather (Maternal) Family history of diabetes mellitus Past Surgical History Surgical History Fusion of spine LUMBAR History of cardiac cath NO STENTS (MULTIPLE CATHS) History of cardiac radiofrequency ablation 2015 History of colonoscopy History of tonsillectomy and adenoidectomy History of tooth extraction History of total knee replacement LEFT Hx of CABG 1 VESSEL AT [facility] Hx of vasectomy Past Anesthesia History No Hx of Anesthesia Complications and No Family Hx of Anesthesia Complications History of PONV No Hx of PONV and No Hx of Motion Sickness Social History Smoking Status: Former smoker tobacco type: cigarettes and smokeless tobacco Do You Dip or Chew Tobacco: No Smoking End Date: 1974 Hx Alcohol Use: Yes Alcohol type: beer, wine and hard liquor alcohol intake frequency: a few times a week Hx Substance Use: No substance use type: does not use Review of Systems Intermittent palpitations- following with cardio - beta axel increased Occ snoring- no hx of sleep study Hx of blood transfusions (multiple) s/p surgeries and at age 15 years with kidney trauma Chronic cough- non productive- secondary to medication Patient denies chest pain, shortness of breath, dyspnea on exertion, wheezing. No hx of seizures, stroke, [place].. No hx of blood clots. Physical Exam Vital Signs VITALS BP 148/89 P 83 TEMP 97.7 SP02 95% RESP 16 PHYSICAL Mild decreased ROM of neck- mild stiffness - otherwise no pain Full TMJ range of motion. TMD 3.5 finger breaths Mallampati Score I Lungs: clear throughout to auscultation Cardiac: regular rate and rhythm, no murmurs noted Spine: normal Psychiatric: Alert ENMT Mouth / Teeth: 1. Capped 2. Capped Missing molar Capped molars Testing Laboratory Results 06/04/20 11:02 06/04/20 11:02 PT 10.9 Seconds (9.0-12.0) 06/04/20 11:02 INR 1.0 (0.9-1.1) 06/04/20 11:02 APTT 30.6 Seconds (21.0-31.0) 06/04/20 11:02 Urine Color Dark Yellow 06/04/20 11:02 Urine Appearance Clear (Clear) 06/04/20 11:02 Urine pH 5.0 (4.5-7.5) 06/04/20 11:02 Ur Specific [place] 1.019 (1.000-1.030) 06/04/20 11:02 Urine Protein Negative (Negative) 06/04/20 11:02 Urine Glucose (UA) Negative (Negative) 06/04/20 11:02 Urine Ketones Negative (Negative) 06/04/20 11:02 Urine Nitrite Negative (Negative) 06/04/20 11:02 Ur Leukocyte Esterase Negative (Negative) 06/04/20 11:02 Blood Type A Positive 06/04/20 11:02 Antibody Screen NEGATIVE 06/04/20 11:02 Electrocardiogram Date: 04/15/20 SR with PACs at 85bpm. LBBB. When compared to EKG from May 22, 2019- PACs are now present, axis shifted left, TWI no longer evident in inferior and lateral leads per cardio. Chest X-Ray Date: 06/04/20 Findings: + NAD Echocardiogram Date: 04/30/20 EF: 42% LV Function: dysfunctional (Mildly reduced ) Other Findings: + LVH (mild/concentric ) Septal wall motion consisent with LBBB. Remaining LV wall segments are borderline hypokinetic. LA moderately enlarged. Grade II diastolic dysfunction. Mild TR. PASP 35mmHg (upper limit of normal) Aortic root mildly enlarged at 4cm. Proximal ascending thoracic aorta is mildly enlarged with diameter of 3.8cm.
--- NOTE | 2020-06-04 11:27 | XRay Report ---
XR chest Pre-admission PA/Lat HISTORY: 70 years-old Male pat preoperative exam. COMPARISON: Chest radiograph 01/24/2017 TECHNIQUE: PA and lateral views of the chest FINDINGS: Cardiomediastinal and hilar silhouettes are within normal limits. Prior median sternotomy with a few fractured wires. No pneumothorax, pleural effusion, airspace consolidation or overt pulmonary edema. Bones of the chest appear grossly intact. IMPRESSION: No acute process. ACT 112: Negative or not required by law. The above report was generated using voice recognition software. It may contain grammatical, syntax o r spelling errors. Electronically signed by: Jeff Kenyon M.D. 06/04/2020 11:26 AM
[2020-06-04 12:30] LABS: Appearance Urine Clear (Clear); Bilirubin Urine Negative (Negative); Blood Urine Negative (Negative); Color Urine Dark Yellow; Glucose Urine UA Negative (Negative); Ketones Urine Negative (Negative); Leukocyte Esterase Urine Negative (Negative); Nitrite Urine Negative (Negative); Protein Urine Negative (Negative); Specific Gravity Urine 1.019 (1.000-1.030); Urobilinogen Urine Negative (Negative)
[2020-06-04 12:32] LABS: Basophils # (auto) 0.03 K/uL (0-0.2); Basophils % (auto) 0.6 %; Eosinophils # (auto) 0.18 K/uL (0-0.5); Eosinophils % (auto) 3.4 %; Hematocrit (blood only) 42.3 % (42-52); Hemoglobin 14.4 g/dL (14.0-18.0); Lymphocytes # (auto) 2.07 K/uL (1.2-3.4); Lymphocytes % (auto) 39.4 %; Mean Corpuscular Hemoglobin 32.7 pg (25-34); Mean Corpuscular Volume 95.9 fL (80-100); Mean Platelet Volume 11.8 fL (7.4-10.4); Monocytes # (auto) 0.35 K/uL (0.11-0.59); Monocytes % (auto) 6.7 %; Neutrophils # (auto) 2.62 K/uL (1.4-6.5); Neutrophils % (auto) 49.9 %; Platelet Count 171 K/uL (130-400); RDW Coefficient of Variation 12.8 % (11.5-14.5); RDW Standard Deviation 44.6 fL (36.4-46.3); Red Blood Count 4.41 M/uL (4.7-6.1); White Blood Count 5.25 K/uL (4.8-10.8)
[2020-06-04 12:41] LABS: Partial Thromboplastin Ratio 1.1; Partial Thromboplastin Time 30.6 Seconds (21.0-31.0); Prothrombin Time 10.9 Seconds (9.0-12.0)
[2020-06-04 12:43] LABS: BUN Creatinine Ratio 19.2 (10-20); Calcium 9.1 mg/dl (8.5-10.1); Est GFR (Non-African American) 62.2; Potassium 4.6 mmol/L (3.5-5.1)
[~2020-06-29 07:18] MED LIST changes: -ASCO10003 PO; -ASPI81TA28 PO; -ATOR-24 PO; -CEFAZOLIN 2000 MG/60 ML D5W 60 ML IV SCH; -COEN1CAP28 PO; -DEXAMETHASONE 4 MG TAB PO SCH; -FAMOTIDINE 20 MG TAB PO SCH; +HYDROmorphone INJ 2 MG/ML SYR/VIAL ONE; -LACTATED RINGER'S 1000ML 1,000 ML IV SCH; -LACTATED RINGER'S 1000ML 500 ML IV ONE; -LACTATED RINGER'S 1000ML IV SCH; -LOSA50TA6 PO; +LR 15ML/HR IV SCH; +LR 500ML BOLUS, THEN 15ML/HR IV SCH; -METO25TA3 PO; -METOCLOPRAMIDE HCL 10 MG TAB PO SCH; +MIDAZOLAM HCL 1 MG/ML 2ML VIAL ONE; -MULT-506 PO; -OXYCODONE HCL 10 MG TABCR (OXYCONTIN) PO SCH; -PRLSR20 PO; -ROPIVACAINE 5MG/ML 30 ML 150 MG, BUPIVACAINE/EPINEPHR 0.5% MPF 30 ML, KETOROLAC TROMETH... INFIL SCH; -SAW450CA5 PO; -TURM500T PO; +ceFAZolin 2000MG 2,000 MG/15 ML SYR IV SCH; +fentaNYL citrate 100 MCG/2 ML VIAL ONE
[2020-06-29] MEDS ORDERED: ALBUMIN HUMAN 5% 12.5 GM/250 ML VIAL IV ONE ×2 (07:26→11:26)
[2020-06-29] MEDS ORDERED: LABETALOL HCL IV 5 MG/ML 20ML IV PRN (08:44)
[2020-06-29] MEDS ORDERED: HYDROmorphone INJ 1 MG/ML SYRINGE IV PRN ×2 (08:44→12:55)
[2020-06-29] MEDS ORDERED: ONDANSETRON INJ 2 MG/ML 2 ML VIAL IV PRN ×2 (08:44→12:55)
[2020-06-29] MEDS ORDERED: ATROPINE SULFATE 0.1 MG/ML 10ML SYR IV PRN (08:44)
--- NOTE | 2020-06-29 08:45 | History & Physical Bridge Note ---
Date of Service June 29, 2020 History & Physical Bridge Note I have examined the patient, reviewed the History & Physical and in the interval since the performance of the History & Physical I have noted the following changes of clinical significance: no changes noted
--- NOTE | 2020-06-29 08:46 | History & Physical Report ---
Date of Service June 29, 2020 Assessment & Plan (1) Neurogenic claudication due to lumbar spinal stenosis: Admission and Anticipated Discharge Date Admission Date: L2-L4 decompression fusion, and L4-S1 hardware removal History of Present Illness Chief Complaint: Back and bilateral leg pain Primary Care Provider: Tiffanie Vaz MD This is a 70-year-old male who presents with chronic persistent back and leg pain. After failing course of nonoperative care is here for surgical intervention Allergies Allergy/AdvReac Type Severity Reaction Status Date / Time NSAIDS (Non-Steroidal Allergy Mild ITCHING Verified 06/29/20 07:45 Anti-Inflamma PALMS Home Medications Medication Instructions Recorded Confirmed Type aspirin 81 mg PO QAM 11/06/19 06/29/20 History coQ10 (ubiquinol) 200 mg PO QAM 11/06/19 06/29/20 History lutein 20 mg PO QAM 11/06/19 06/29/20 History multivitamin 1 tab PO QAM 11/06/19 06/29/20 History omeprazole 20 mg PO QAM 11/06/19 06/29/20 History rosuvastatin [Crestor] 20 mg PO QAM 11/06/19 06/29/20 History saw palmetto 500 mg PO QAM 11/06/19 06/29/20 History vitamin B complex 1 tab PO QAM 11/06/19 06/29/20 History losartan 50 mg tablet 25 mg PO QAM tab 06/09/20 06/29/20 History metoprolol succinate 100 mg 100 mg PO DAILY #90 tab 06/09/20 06/29/20 Rx tablet,extended release 24 hr metoprolol succinate 25 mg 25 mg PO DAILY #90 tab 06/09/20 06/29/20 Rx tablet,extended release 24 hr Past Med/Surg History Medical History (Updated 06/29/20 @ 08:46 by Dwayne Washington DO) CAD (coronary artery disease), [place] coronary artery S/p 1 vessel CABG, [place] 1995. Multiple cardiac caths, no stents. Cardiomyopathy EF mildly reduced at 40-44% GERD (gastroesophageal reflux disease) Well controlled and stable Hyperlipidemia Hypertension LBBB (left bundle branch block) Chronic per cardio Myocardial Infarction 1995? 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 Surgical History Fusion of spine L4-S1, 1996 History of cardiac cath NO STENTS (MULTIPLE CATHS) History of cardiac radiofrequency ablation 2016 History of colonoscopy History of tonsillectomy and adenoidectomy History of tooth extraction History of total knee replacement LEFT 2017 Hx of CABG 1 VESSEL AT [facility] Hx of vasectomy Family History Grandfather (Maternal) Family history of diabetes mellitus Social History Smoking Status: Former smoker Smoking End Date: 1974; Second Hand Exposure: No; Do You Dip or Chew Tobacco: No; Tobacco Cessation Education Requested by Patient: No Hx Alcohol Use: Yes Alcohol type: beer, wine and hard liquor Hx Substance Use: No Preferred Language: Mosotho Communication Ability: Effective Licensed Practical Nurse Required: No Beliefs That Will Affect Care: None Current Living Situation: Spouse Feels Safe at Home: Yes Safety Concerns: Feels Safe At This Time Assistive Devices: Glasses Physical Exam Physical Exam: Patient is alert and oriented Heart regular rate and rhythm Lungs clear to auscultation Results & Data ([facility]) Vital Signs (Past 12 Hours) Vital Signs Temp Pulse Resp BP Pulse Ox 06/29/20 07:50 36.5 C 92 H 20 166/96 H 97
[2020-06-29] MEDS ORDERED: BUPIVACAINE/EPINEPHRINE 0.5% MPF 1:200,000 30 ML VIAL ONE (08:58)
[2020-06-29] MEDS ORDERED: BACITRACIN INJ 50,000 UNIT VIAL ONE (08:58)
[2020-06-29] MEDS ORDERED: NEOSTIGMINE METHYLSULFATE 1 MG/ML 10ML VIAL ONE (09:35)
[2020-06-29] MEDS ORDERED: LARYING-O-JET KIT (LTA) ONE (09:35)
[2020-06-29] MEDS ORDERED: ONDANSETRON INJ 2 MG/ML 2 ML VIAL ONE (09:35)
[2020-06-29] MEDS ORDERED: LIDOCAINE HCL 2% 2 ML VIAL/AMP(20MG/ML) INFIL ONE (09:35)
[2020-06-29] MEDS ORDERED: PROPOFOL IV EMULSION 10 MG/ML 20 ML VIAL IV ONE (09:35)
[2020-06-29] MEDS ORDERED: ROCURONIUM BROMIDE 10 MG/ML 5 ML VIAL IV ONE (09:35)
[2020-06-29] MEDS ORDERED: GLYCOPYRROLATE 0.2 MG/ML VIAL ONE (09:35)
[2020-06-29] MEDS ORDERED: DEXAMETHASONE SOD INJ 4 MG/ML VIAL ONE (09:35)
[2020-06-29] MEDS ORDERED: PHENYLEPHRINE 100MCG/ML 5ML SYR ONE (09:35)
[2020-06-29] MEDS ORDERED: FLOSEAL HEMOSTATIC MATRIX 10ML TOP ONE (10:12)
--- NOTE | 2020-06-29 11:39 | Operative Report ---
Post Operative Report Pre & Post Diagnosis Operation Date: 06/29/20 09:05 Pre-Op Diagnosis: Spinal Stenosis, Lumbar Region with Neurogenic Claudication Post-Op Diagnosis: Spinal Stenosis, Lumbar Region with Neurogenic Claudication I identified the patient and participated in the time-out.: Yes Procedure Operation Date: 06/29/20 09:05 Actual Procedures #1 removal of posterior instrumentation L4-5 L5-S1. #2 exploration of fusion L4-5 L5-S1. #3 lumbar decompression with bilateral medial facetectomies and foraminotomies L2-3 and L3-4 per #4 posterior spinal fusion L2-3 L3-4. #5 placement posterior instrumentation L2-3 L3-4. #6 interbody fusion L3-4. #7 placement peek cage 13 x 26 mm at L3-4. #8 placement locally harvested morselized autograft in the posterior lateral gutters. #9 placement infuse collagen sponge bone master graft in the posterior gutters and ostial amp interbody space. Surgeon Dwayne Washington, DO Process Development Associate Mitzi Walker Estimated Blood Loss 700 Findings See Below The patient is 6 foot tall weighing over 106 kg with a BMI in excess of 31. The patient's body habitus did add significant technical difficulty requiring her deepest retractors and longest instruments in order to perform his procedure. This at least 25% increase to the operative time. Specimens None Indications This is a 70-year-old male who presents with above-mentioned diagnosis after failing course of nonoperative care is here for the above-mentioned procedure. Description of Procedure Patient was met with identified informed consent obtained. Patient was then taken to the operative suite underwent an patient placed in a prone position on the Pedro table on top of the [place] frame. All bony prominences well-padded eyes inspected to ensure no external pressure placed upon the. This point the lumbar spine was prepped and draped in normal sterile fashion. Sharp dissection with the assistance of Bovie cautery was performed down to and exposing the lamina and transverse processes of L2-L3 and L4. This included the instrumentation at L4-L5 and S1 levels bilaterally. Then proceeded to remove the hardware bilaterally explore the fusion mass noting it to be intact. The right S1 screw was stripped and I was unable to to be removed without significant bony resection increasing blood loss. Subsequent elected to leave it in place. Then performed a complete laminectomy of L3 and L4 including bilateral medial facetectomies and foraminotomies addressing severe spinal stenosis. Pedicle screws were then placed in L2-L3-L4 bilaterally with assistance of fluoroscopy and appropriate sized damion placed. By way of a transforaminal portion left complete discectomy was performed endplates curetted to subcortical and bone and a 13 x 26 mm peek cage filled with osteobone graft tapped position. The rods were then locked into final position bilaterally. The transverse processes of L2-L3-L4 burred to subcortical bleeding bone. Infuse collagen sponge master graft local autograft was placed in the posterior gutters. 15 round NAKIA inserted. Incision was then closed with 1 Vicryl fascia 2-0 Vicryl subcutaneously and 4 Monocryl for final skin closure. Steri-Strip sterile dressings placed. Patient waken taken to PACU stable condition. Please note spinal cord monitoring was utilized at the procedure no changes noted. Lastly Mitzi Walker was present at the entire surgery involved the patient positioning complex portions of the surgery and final skin closure. I attest to the content of the Intraoperative Record and any orders documented therein. Any exceptions are noted below.
--- NOTE | 2020-06-29 12:08 | Fluoroscopy Report ---
FL lumbar spine 2-3V CLINICAL HISTORY: L4-S1 REMOVE HARDWARE/L2-4 DECOMPRESSION/FUSION/INTERBODY COMPARISON STUDY: None. FLUOROSCOPY TIME: 18 seconds. FLUOROSCOPIC IMAGES: 2 FINDINGS: Right S1 screw is partially imaged. A previous L4-L5 discectomy is noted. Interval L3-L4 di scectomy is noted with interbody spacer placement. Posterior decompression is noted. Bilateral pedicl e screws at the L2, L3 and L4 levels are noted. There are interconnecting rods. Hardware is intact. IMPRESSION: Fluoroscopy provided during L3-L4 discectomy, posterior decompression and L2-L4 bilatera l pedicle screw fusion. ACT 112: Negative or not required by law. Electronically signed by: Dimitris Portillo M.D. 06/29/2020 12:06 PM
--- NOTE | 2020-06-29 12:34 | Anesthesiology Progress Note ---
Date of Service June 29, 2020 Anesthesia Post Procedure Vital Signs Vital Signs: Temp Pulse Pulse Resp BP BP Pulse Ox 06/29/20 12:25 70 12 114/71 95 06/29/20 12:15 75 16 126/72 100 06/29/20 12:05 68 12 127/77 100 06/29/20 11:56 36.5 C 76 14 144/71 H 100 06/29/20 07:50 36.5 C 92 H 20 166/96 H 97 Transfer of Care Handoff Completed per policy Notes Mental Status: alert / awake / arousable Patient Amnestic to Procedure: Yes Nausea / Vomiting: adequately controlled Pain: adequately controlled Airway Patency, RR, SpO2: stable & adequate BP & HR: stable & adequate Hydration State: stable & adequate Anesthetic Complications: no major complications apparent
[2020-06-29] MEDS ORDERED: LORazepam 0.5 MG/1 ML VIAL IV PRN (12:55)
[2020-06-29] MEDS ORDERED: HYDROmorphone INJ 0.5 MG/0.5 ML SYR IV PRN (12:55)
[2020-06-29] MEDS ORDERED: bisacodyL 10 MG SUPP PR PRN (12:55)
[2020-06-29] MEDS ORDERED: traMADol HCL 50 MG TABLET PO PRN (12:55)
[2020-06-29] MEDS ORDERED: MAGNESIUM HYDROXIDE SUSP 30 ML UDC PO PRN (12:55)
[2020-06-29] MEDS ORDERED: DO NOT ADMINISTER PNEUMOCOCCAL VACCINE PRN (12:55)
[2020-06-29] MEDS ORDERED: METOCLOPRAMIDE HCL INJ 5 MG/ML 2 ML VIAL IV PRN (12:55)
[2020-06-29] MEDS ORDERED: hydrOXYzine HCl 25 MG TAB PO PRN (12:55)
[2020-06-29] MEDS ORDERED: ALUMINUM/MAGNESIUM SUSP 30 ML UDC PO PRN (12:55)
[2020-06-29] MEDS ORDERED: SOD PHOSPHATE/SOD BIPHOSPHATE ENEMA 132 ML BTL PR PRN (12:55)
[2020-06-29] MEDS ORDERED: PROMETHAZINE HCL 12.5 MG in SODIUM CHLORIDE 0.9% 50 ML IV PRN (12:55)
[2020-06-29] MEDS ORDERED: ONDANSETRON 4 MG OD TAB PO PRN (12:55)
[2020-06-29] MEDS ORDERED: FAMOTIDINE 20 MG TAB PO PRN (12:55)
[2020-06-29] MEDS ORDERED: ACETAMINOPHEN 1,000 MG/100 ML VIAL IV PRN (12:55)
[2020-06-29] MEDS ORDERED: DO NOT ADMINISTER FLU VACCINE PRN (12:55)
[2020-06-29] MEDS ORDERED: diphenhydrAMINE Capsule 25 MG CAP PO PRN (12:55)
[2020-06-29] MEDS ORDERED: LORazepam 0.5 MG TAB PO PRN (12:55)
[2020-06-29] MEDS ORDERED: NALOXONE HCL 0.4 MG/1 ML VIAL/CARP IV PRN (12:55)
[2020-06-29] MEDS: LACTATED RINGER'S 1,000 ML IV SCH ×2 (13:54→20:35)
[2020-06-29] MEDS ORDERED: ACETAMINOPHEN 500 MG TAB PO PRN (14:00)
--- NOTE | 2020-06-29 18:20 | Hospitalist Consultation ---
Date of Consultation June 29, 2020 Assessment & Plan (1) Neurogenic claudication due to lumbar spinal stenosis: s/p decompression and fusion 06/29 Pain control, dvt proph per primary monitor for acute blood loss (2) Hypertension: Continue metoprolol 125 mg daily, losartan 25 mg daily (3) LBBB (left bundle branch block): (4) CAD (coronary artery disease), [place] coronary artery: Resume ASA as soon as ok with surgery Continue statin, metoprolol and lisinopril (5) Hyperlipidemia: Continue statin (6) GERD (gastroesophageal reflux disease): Continue ppi Supervising Physician Co-Signing Physician Notes Patient seen and examined with Gia COLBERT. I agree with her consultation including exam, ROS and assessment and plan. patient doing well, pain controlled, no chest pain, no dyspnea, no nausea discussed need for incentive spirometer, will watch for bowel function s/p Lumbar decompression: management per Dr. Washington, check routine lab work in the morning Cardiomyopathy: continue metoprolol, examines euvolemic, check labs in the AM GERD, dyslipidemia, HTN: all chronic issues, stable, continue home regimen, check labs in AM History of Present Illness Attending Physician: Dwayne Washington, DO History of Present Illness Mr. Fung is feeling good post op. Eating dinner, no complaints Pmhx: CAD, CABG, GERD, HTN, LBBB, SVT with ablation, hld Social: lives with , retired, remote smoking history as a young man, occasional alcohol Family: heart disease Allergies Allergy/AdvReac Type Severity Reaction Status Date / Time NSAIDS (Non-Steroidal Allergy Mild ITCHING Verified 06/29/20 07:45 Anti-Inflamma PALMS Home Medications Medication Instructions Recorded Confirmed Type aspirin 81 mg PO QAM 11/06/19 06/29/20 History coQ10 (ubiquinol) 200 mg PO QAM 11/06/19 06/29/20 History lutein 20 mg PO QAM 11/06/19 06/29/20 History multivitamin 1 tab PO QAM 11/06/19 06/29/20 History omeprazole 20 mg PO QAM 11/06/19 06/29/20 History rosuvastatin [Crestor] 20 mg PO QAM 11/06/19 06/29/20 History saw palmetto 500 mg PO QAM 11/06/19 06/29/20 History vitamin B complex 1 tab PO QAM 11/06/19 06/29/20 History losartan 50 mg tablet 25 mg PO QAM tab 06/09/20 06/29/20 History metoprolol succinate 100 mg 100 mg PO DAILY #90 tab 06/09/20 06/29/20 Rx tablet,extended release 24 hr metoprolol succinate 25 mg 25 mg PO DAILY #90 tab 06/09/20 06/29/20 Rx tablet,extended release 24 hr oxycodone 5 mg PO Q6H PRN #20 tab 06/30/20 Rx tramadol 50 mg PO Q6H PRN #30 tab 06/30/20 Rx Patient History Medical History (Updated 06/30/20 @ 16:07 by SAYRA Wynn) CAD (coronary artery disease), [place] coronary artery S/p 1 vessel CABG, [place] 1995. Multiple cardiac caths, no stents. Cardiomyopathy EF mildly reduced at 40-44% GERD (gastroesophageal reflux disease) Well controlled and stable Hyperlipidemia Hypertension LBBB (left bundle branch block) Chronic per cardio Myocardial Infarction 1995? 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 Surgical History Fusion of spine L4-S1, 1996 History of cardiac cath NO STENTS (MULTIPLE CATHS) History of cardiac radiofrequency ablation 2015 History of colonoscopy History of tonsillectomy and adenoidectomy History of tooth extraction History of total knee replacement LEFT 2017 Hx of CABG 1 VESSEL AT [facility] Hx of vasectomy Family History Grandfather (Maternal) Family history of diabetes mellitus Social History Smoking Status: Former smoker Second Hand Exposure: No; Hx Alcohol Use: Yes Alcohol type: beer, wine and hard liquor Hx Substance Use: No Preferred Language: Citizen Of [place] Communication Ability: Effective 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 Beliefs That Will Affect Care: None marital status: Current Living Situation: Spouse Feels Safe at Home: Yes Assistive Devices: Walker Review of Systems Constitutional: no fever, no chills and no body aches Respiratory: no cough and no dyspnea Cardiovascular: no chest pain, no dyspnea and no palpitations Gastrointestinal: no abdominal pain, no nausea and no vomiting Genitourinary: no dysuria and no urinary hesitancy Musculoskeletal: no back pain and no joint pain Integumentary: no rash Physical Exam Physical Exam: General: no distress Eyes: normal inspection, PERLL Respiratory: chest non tender, clear to auscultation, normal breath sounds, no respiratory distress, no accessory muscle use Cardiac: regular rate and rhythm, no rub or gallop, no murmur, no edema, no jvd GI/: active bowel sounds, no abd pain or tenderness, soft, non distended Extremities: normal range of motion, normal strength, non tender Neuro/Psych: alert and oriented x 3, normal mood and affect Skin: normal color, dry Results & Data Results & Data ([facility]) Vital Signs (Past 12 Hours) Vital Signs Temp Pulse Pulse Pulse Resp BP BP 06/29/20 15:52 36.8 C 65 16 113/65 06/29/20 14:50 65 16 113/67 06/29/20 14:00 36.4 C L 70 17 114/68 06/29/20 13:25 06/29/20 12:55 70 16 111/69 06/29/20 12:50 36.5 C 81 17 119/71 06/29/20 12:35 36.5 C 74 13 112/75 06/29/20 12:25 70 12 114/71 06/29/20 12:15 75 16 126/72 06/29/20 12:05 68 12 127/77 06/29/20 11:56 36.5 C 76 14 144/71 H 06/29/20 07:50 36.5 C 92 H 20 166/96 H Pulse Ox 06/29/20 15:52 99 06/29/20 14:50 95 06/29/20 14:00 95 06/29/20 13:25 96 06/29/20 12:55 80 L 06/29/20 12:50 97 06/29/20 12:35 95 06/29/20 12:25 95 06/29/20 12:15 100 06/29/20 12:05 100 06/29/20 11:56 100 06/29/20 07:50 97 PG Care Time/CCT Total # of Minutes Spent Total Time Spent with Patient: Total time spent is greater than 50% in coordination of care (as documented) at patient's floor/unit and/or counseling patient: Coding Level of Care Code 87621 Inpt Consult Level 4 Diagnoses Neurogenic claudication due to lumbar spinal stenosis M48.062 Hypertension I10 LBBB (left bundle branch block) I44.7 CAD (coronary artery disease), [place] coronary artery I25.10 Hyperlipidemia E78.5 GERD (gastroesophageal reflux disease) K21.9
[2020-06-29] MEDS: ceFAZolin 2000MG 2,000 MG/15 ML SYR IV SCH (21:17)
[2020-06-29] MEDS: DOCUSATE SODIUM/SENNA 50/8.6MG TAB PO SCH (21:18)
[2020-06-30] MEDS: oxyCODONE HCL IR 5 MG TAB (IMMEDIATE RELEASE) PO PRN ×3 (03:06→23:49)
[2020-06-30] MEDS: LACTATED RINGER'S 1,000 ML IV SCH (03:21)
[2020-06-30] MEDS: POLYETHYLENE (MIRALAX) 17 GM PACK PO SCH ×4 (05:21→23:49)
[2020-06-30] MEDS: ceFAZolin 2000MG 2,000 MG/15 ML SYR IV SCH (05:21)
[2020-06-30 07:28] LABS: Hematocrit (blood only) 36.6 % (42-52); Hemoglobin 12.1 g/dL (14.0-18.0); Immature Granulocytes # (auto) 0.04 K/uL (0.00-0.02); Immature Granulocytes % (auto) 0.3 %; Lymphocytes # (auto) 1.53 K/uL (1.2-3.4); Lymphocytes % (auto) 10.8 %; Mean Corpuscular Hemoglobin 31.8 pg (25-34); Mean Corpuscular Hgb Conc 33.1 g/dL (32-36); Mean Corpuscular Volume 96.1 fL (80-100); Mean Platelet Volume 11.2 fL (7.4-10.4); Monocytes # (auto) 0.84 K/uL (0.11-0.59); Monocytes % (auto) 5.9 %; Neutrophils # (auto) 11.81 K/uL (1.4-6.5); Platelet Count 164 K/uL (130-400); RDW Coefficient of Variation 12.7 % (11.5-14.5); Red Blood Count 3.81 M/uL (4.7-6.1); White Blood Count 14.22 K/uL (4.8-10.8)
[2020-06-30 07:53] LABS: BUN Creatinine Ratio 15.8 (10-20); Calcium 8.5 mg/dl (8.5-10.1); Creatinine Clr Calc Pharmacy 78.7 ml/min; Est GFR (African American) 78.4; Est GFR (Non-African American) 67.7; Potassium 4.3 mmol/L (3.5-5.1)
[2020-06-30] MEDS: ROSUVASTATIN CALCIUM 20 MG TAB PO SCH (08:26)
[2020-06-30] MEDS: MULTIVITAMIN TAB PO SCH (08:26)
[2020-06-30] MEDS: LOSARTAN POTASSIUM 25 MG TAB PO SCH (08:26)
[2020-06-30] MEDS: METOPROLOL SUCC 25MG EXT REL TAB PO SCH (08:26)
[2020-06-30] MEDS: ASPIRIN 81 MG ECTAB PO SCH (08:26)
[2020-06-30] MEDS: METOPROLOL SUCC 50MG EXT REL TAB PO SCH (08:27)
[2020-06-30] MEDS: VITAMIN B COMPLEX TAB PO SCH (08:27)
[2020-06-30] MEDS: PANTOprazole 40 MG TAB PO SCH (08:29)
--- NOTE | 2020-06-30 08:55 | Hospitalist Progress Note ---
Date of Service June 30, 2020 Assessment & Plan (1) Neurogenic claudication due to lumbar spinal stenosis: s/p decompression and fusion 06/29 Pain control, dvt proph per primary (2) Hypertension: Continue metoprolol 125 mg daily, losartan 25 mg daily (3) LBBB (left bundle branch block): (4) CAD (coronary artery disease), [place] coronary artery: ASA has been resumed Continue statin, metoprolol and lisinopril (5) Hyperlipidemia: Continue statin (6) Ischemic cardiomyopathy: Mildly reduced EF 40 - 45% per past cardiology notes. (7) GERD (gastroesophageal reflux disease): Continue ppi (8) Acute blood loss anemia: hgb decreased post op from 14.4 to 12.1, continue to monitor Thank you for including the hospitalists in the care of this patient, we will sign off at this time Admission and Anticipated Discharge Date Admission Date: June 29, 2020 Subjective Mr. Fung is having some back pain but otherwise does not have complaints. Review of Systems Constitutional: no fever, no chills and no body aches Respiratory: no cough, no dyspnea and no wheezing Cardiovascular: no chest pain, no palpitations and no lightheadedness Gastrointestinal: no abdominal pain, no nausea and no vomiting Genitourinary: no dysuria and no urinary hesitancy Musculoskeletal: no back pain and no joint pain Integumentary: no rash Physical Exam Physical Exam: General: no distress Eyes: normal inspection, PERLL Respiratory: chest non tender, clear to auscultation, normal breath sounds, no respiratory distress, no accessory muscle use Cardiac: regular rate and rhythm, no rub or gallop, no murmur, no edema, no jvd GI/: active bowel sounds, no abd pain or tenderness, soft, non distended Extremities: normal range of motion, normal strength, non tender Neuro/Psych: alert and oriented x 3, normal mood and affect Skin: normal color, dry Results & Data Results & Data ([facility]) Vital Signs (Past 12 Hours) Vital Signs Temp Pulse Resp BP BP Pulse Ox 06/30/20 07:51 36.5 C 92 H 16 141/62 H 97 06/29/20 23:21 36.4 C L 64 14 132/73 94 PG Care Time/CCT Total # of Minutes Spent Total Time Spent with Patient: Total time spent is greater than 50% in coordination of care (as documented) at patient's floor/unit and/or counseling patient: Coding Level of Care Code 19923 Subseq Hosp Care Lvl 2 Diagnoses Neurogenic claudication due to lumbar spinal stenosis M48.062 Hypertension I10 LBBB (left bundle branch block) I44.7 CAD (coronary artery disease), [place] coronary artery I25.10 Hyperlipidemia E78.5 Ischemic cardiomyopathy I25.5 GERD (gastroesophageal reflux disease) K21.9 Acute blood loss anemia D62
[2020-06-30] MEDS ORDERED: NON-FORMULARY MEDICATION (Saw Palmetto 500 mg Capsule) PO SCH (09:00)
[2020-06-30] MEDS ORDERED: NON-FORMULARY MEDICATION (Lutein 20 mg Capsule) PO SCH (09:00)
[2020-06-30] MEDS ORDERED: NON-FORMULARY MEDICATION (Coq10 (Ubiquinol) 200 mg Capsule) PO SCH (09:00)
--- NOTE | 2020-06-30 09:43 | Orthopedic Progress Note ---
Date of Service June 30, 2020 Assessment & Plan (1) Neurogenic claudication due to lumbar spinal stenosis: Admission and Anticipated Discharge Date Admission Date: June 29, 2020 This time we will continue physical therapy monitor his NAKIA output hopefully discharge home in the next day or so. Subjective Back pain controlled leg symptoms improved Physical Exam Physical Exam: Patient is in the chair at the bedside. Is good strength testing. Appears comfortable. Results & Data ([facility]) Vital Signs (Past 12 Hours) Vital Signs Temp Pulse Resp BP BP Pulse Ox 06/30/20 07:51 36.5 C 92 H 16 141/62 H 97 06/29/20 23:21 36.4 C L 64 14 132/73 94
[2020-06-30] MEDS: DOCUSATE SODIUM/SENNA 50/8.6MG TAB PO SCH (20:33)
[2020-07-01] MEDS: POLYETHYLENE (MIRALAX) 17 GM PACK PO SCH ×3 (06:26→17:22)
[2020-07-01] MEDS: oxyCODONE HCL IR 5 MG TAB (IMMEDIATE RELEASE) PO PRN ×4 (06:26→21:45)
[2020-07-01] MEDS: METOPROLOL SUCC 25MG EXT REL TAB PO SCH (08:17)
[2020-07-01] MEDS: METOPROLOL SUCC 50MG EXT REL TAB PO SCH (08:18)
[2020-07-01] MEDS: ROSUVASTATIN CALCIUM 20 MG TAB PO SCH (08:18)
[2020-07-01] MEDS: MULTIVITAMIN TAB PO SCH (08:18)
[2020-07-01] MEDS: ASPIRIN 81 MG ECTAB PO SCH (08:18)
[2020-07-01] MEDS: PANTOprazole 40 MG TAB PO SCH (08:19)
[2020-07-01] MEDS: LOSARTAN POTASSIUM 25 MG TAB PO SCH (08:19)
[2020-07-01] MEDS: VITAMIN B COMPLEX TAB PO SCH (08:19)
--- NOTE | 2020-07-01 09:26 | Orthopedic Progress Note ---
Date of Service July 01, 2020 Assessment & Plan (1) Neurogenic claudication due to lumbar spinal stenosis: Admission and Anticipated Discharge Date Admission Date: June 29, 2020 This time continue physical therapy monitor his NAKIA output advance his bowel regimen anticipate discharge home tomorrow. Subjective Patient's back pain is controlled leg symptoms improved. No bowel movement as of yet. Physical Exam Physical Exam: Patient is in the chair at the bedside is good strength testing. Results & Data ([facility]) Vital Signs (Past 12 Hours) Vital Signs Temp Pulse Resp BP BP Pulse Ox 07/01/20 07:18 36.4 C L 104 H 16 109/66 96 06/30/20 23:47 37.4 C 81 14 129/66 92
[2020-07-01] MEDS: DOCUSATE SODIUM/SENNA 50/8.6MG TAB PO SCH (20:22)
[2020-07-02] MEDS: POLYETHYLENE (MIRALAX) 17 GM PACK PO SCH (00:04)
[2020-07-02] MEDS: METOPROLOL SUCC 50MG EXT REL TAB PO SCH (08:07)
[2020-07-02] MEDS: PANTOprazole 40 MG TAB PO SCH (08:08)
[2020-07-02] MEDS: METOPROLOL SUCC 25MG EXT REL TAB PO SCH (08:08)
[2020-07-02] MEDS: ASPIRIN 81 MG ECTAB PO SCH (08:08)
[2020-07-02] MEDS: VITAMIN B COMPLEX TAB PO SCH (08:08)
[2020-07-02] MEDS: LOSARTAN POTASSIUM 25 MG TAB PO SCH (08:08)
[2020-07-02] MEDS: ROSUVASTATIN CALCIUM 20 MG TAB PO SCH (08:08)
[2020-07-02] MEDS: MULTIVITAMIN TAB PO SCH (08:08)
--- NOTE | 2020-07-02 10:19 | Discharge Summary ---
Date of Service July 02, 2020 Admission HPI Per Admitting Provider This is a 70-year-old male who presents with chronic persistent back and leg pain. After failing course of nonoperative care is here for surgical intervention Principal Diagnosis Lumbar spinal stenosis with neurogenic claudication Discharge Data Allergies Allergy/AdvReac Type Severity Reaction Status Date / Time NSAIDS (Non-Steroidal Allergy Mild ITCHING Verified 06/29/20 07:45 Anti-Inflamma PALMS Consultations 06/29/20 12:55 Consult Case Management - Discharge Planning Routine Consult Hospitalist Routine Procedures Performed Operation Date: 06/29/20 09:05 Actual Procedures p L2-L4 Decompression and Fusion,Spinal Cord Monitoring - Dwayne Washington DO s L4-S1 Hardware Removal - Dwayne Washington DO Ordered Studies 06/29/20 09:05 FL fluoroscopy <1hr Routine FL lumbar spine 2-3V Routine Hospital Course (1) Neurogenic claudication due to lumbar spinal stenosis: Patient went lumbar decompression fusion tolerated so was taken to orthopedic for postop. Postop day 1 is up and ambulating leg symptoms improved progressed to postop day #2 on postop day #3 bowels working well NAKIA drain decreasing appropriate. Pain well controlled. Socially discharged home. Discharge orders instructions from the chart for further review. Total Time Total Time Spent Total Time Spent (In Minutes): 20 minutes Discharge Plan Discharge Items Patient Disposition: Home - Self-Care Reason For Visit: Spinal Stenosis, Lumbar Region with Neurogenic Cla Discharge Diagnosis: Lumbar spinal stenosis with neurogenic claudication Activity: As commented below Non-emergency contact: Primary Care Provider Call non-emergency contact if: you have any medication questions Follow-up/Referrals: Tiffanie Vaz MD [Primary Care Provider] - Diet: Regular Addtl Attending Provider Instructions: ACTIVITY RECOMMENDATIONS: SELF CARE INSTRUCTIONS AFTER THORACIC/LUMBAR FUSIONS 1. You may walk to your tolerance. It is good exercise for your legs and back. Expect some back and intermittent leg aches and pains. 2. You may perform "counter-top" level activities (make a sandwich, vicky with a project, etc.). 3. No bending or lifting of more than 10 pounds or back twisting of any nature (roll like a log when turning in bed). 4. You may ride in a car for 20-30 minutes at a time. No driving until after your first visit with your doctor. 5. Frequent changes of position and restricting sitting to 30 minutes at a time will help limit the amount of back spasms and stiffness you may experience. 6. You may discontinue the use of ambulatory aids (cane, crutches, etc.) once your strength and confidence allow. 7. You may control systems drafting officer the shower and let water strike your incision when you arrive home at least once daily. Do not take a tub bath, sit in a hot tub or go into a swimming pool until after your first recheck in the office. SPECIAL CARE INSTRUCTIONS: VERY IMPORTANT TO READ AND REVIEW A. Your surgical incision has been closed with a cosmetic suture under the skin that will dissolve in about 6 weeks. In 14 days, you can use a pair of clean scissors and cut the suture that is left outside of the skin at the ends of your incision. 1. The small skin tapes can be removed 7 days after surgery if they have not fallen off by that point. 2. You may keep the wound open to air as much as possible to promote healing after post-op day number 5 unless told otherwise by your doctor. 3. If you think the wound looks like it is becoming infected (redness or worsening drainage) and/or you are experiencing fever, chill or worsening back pain and muscle spasms, contact the office so that we may evaluate you as soon as possible. B. Complications are uncommon, but please contact us if you have any signs or symptoms of: 1. wound infection (fever higher than 102.5 degrees F, redness, separation of wound, drainage, or increasing pain from the incision) 2. blood clots in legs (pain, swelling, redness and warmth in legs) 3. urinary tract infection (fever higher than 102.5 degrees F, burning upon urination or increased frequency of urination) 4. nerve problems (inability to walk on your toes or heels, numbness, loss of bowel or bladder control) 5. any other symptoms that concern you C. Please call the office at if you have any concerns or questions about your operation or recovery. D. No smoking! Smoking drastically decreases the chance of a solid fusion. E. Do not take any anti-inflammatory medications (Indocin, Advil, Motrin, Aspirin, Naprosyn, etc.) as these may inhibit the chance of a solid fusion. Tylenol is okay to take for pain. MANAGING PAIN AFTER SPINAL SURGERY 1. Narcotic medication is intended for short-term use and will be provided for surgical pain. Surgical pain usually lasts for a period of 4-6 weeks. Narcotic medication includes Percocet, Vicodin, Darvocet, Tylenol #3 or Lortab. 2. Longer-term pain is more appropriately treated with non-narcotic medication such as Tylenol ES. 3. Muscle spasm is not appropriately treated with narcotics. Muscle relaxers such as Soma, Flexeril or Skelaxin can be used along with Tylenol ES. 4. Remember that we all live with some "aches and pains". This is not unusual or uncommon after an injury or as we get older. a. Back pain is expected and may include muscle spasms for 4 to 6 weeks after surgery. The pain should gradually improve. If the pain worsens for no apparent reason, please contact the office. b. Intermittent leg pain may also be experienced and should not be concerned about unless it worsens for no apparent reason. If so, please contact the office. 5. We will provide appropriate medication within the normal guidelines of their prescribed use. We will also be very cautious and aware of potential abuse and extended duration of patients' medication needs. a. Pain medications are for your comfort and to assist with sleep and rest so that the tissue can heal. They are not provided in order to return to normal activity and should not be used through the day. To do so or worsening pain at night can result from ongoing tissue damage and development of tolerance to the prescribed medicine. 6. Please allow 2-3 days to process refills. Prescriptions will not be mailed but must be picked up at the office. FOLLOW UP VISIT: Keep your scheduled follow-up appointment. Any questions, please call the office at . Pending Studies at Discharge: No Stand-Alone Forms: [employer], Smoking Cessation Medications and DC Order Prescriptions: New tramadol 50 mg tablet 50 mg PO Q6H PRN (Reason: pain, moderate) Qty: 30 RF: 0 oxycodone 5 mg tablet 5 mg PO Q6H PRN (Reason: pain, severe) Qty: 20 RF: 0 Continued metoprolol succinate 25 mg tablet extended release 24 hr 25 mg PO DAILY Qty: 90 RF: 3 losartan 50 mg tablet 25 mg PO QAM RF: 0 metoprolol succinate 100 mg tablet extended release 24 hr 100 mg PO DAILY Qty: 90 RF: 3 aspirin 81 mg Tablet,Delayed Release (Dr/Ec) 81 mg PO QAM RF: 0 omeprazole 20 mg Capsule,Delayed Release(Dr/Ec) 20 mg PO QAM RF: 0 rosuvastatin [Crestor] 20 mg Tablet 20 mg PO QAM RF: 0 multivitamin Tablet 1 tab PO QAM RF: 0 vitamin B complex Tablet 1 tab PO QAM RF: 0 saw palmetto 500 mg Capsule 500 mg PO QAM RF: 0 lutein 20 mg Capsule 20 mg PO QAM RF: 0 coQ10 (ubiquinol) 200 mg Capsule 200 mg PO QAM RF: 0 Discharge Orders: Discharge Order (Routine); Ordered 07/02/20 Ordered By: Dwayne Washington Admission Data Admit Date/Time: 06/29/20 11:56 Attending Provider: Dwayne Washington Admit Provider: Dwayne Washington Primary Care Provider: Tiffanie Vaz Other Providers: Kamila Walton ; Dank Sheffield ; Magnus Grimes ; Coco Mock ; Jorje Tran ; Tres Magdaleno ; Antonio Recinos ; Ema Romo ; Ayse Arthur ; Katie Verdin ; Janes Naqvi ; Verna Jimenez ; Emilee Argueta ; Emiliano Ya ; Mitzi Prieto ; Danny Laws ; Abdias Alberto ; Gia Schmidt ; Jacy Castillo ; Adolfo Washington ; Dank Tavera ; Musa Edwards ; Ramila Grimaldo ; Sushil Tolentino ; Gui Rice ; Osmar Booker ; Huber Wagoner
[2020-07-02] MEDS ORDERED: PERCOCET 5/325MG HOMEPACK PO ONE (10:30)
[2020-07-02] MEDS: oxyCODONE HCL IR 5 MG TAB (IMMEDIATE RELEASE) PO PRN (10:42)
== END 2020-07-02 12:30 | disposition home or self-care (01) | DRG 454 ==
LOC: ASU 07:18 → 3E 11:56